=== PATIENT | female | born 1985 | race Caucasian/White ===

== ENCOUNTER 2016-12-23 10:02 | Emergency (ER) | payer OTHER ==
[~2016-12-23] VITALS: Ht 165.1 cm; Wt 118.9 kg
[2016-12-23 10:06] VITALS: TEMP 36.6; Ht 165.1 cm; Wt 118.9 kg
[2016-12-23] MEDS ORDERED: SODIUM CHLORIDE 0.9% 1000ML 1,000 ML IV STA (11:20)
[2016-12-23 11:38] LABS: BASO % 0.3 %; BASO ABS # 0.03 K/uL (0-0.2); COMPLETE YES; EOS % 1.6 %; HEMATOCRIT 44.2 % (37-47); IG% 0.1 %; LYMPH % 26.2 %; LYMPH ABS # 2.57 K/uL (1.2-3.4); MEAN CELL VOLUME 85.7 fL (80-100); MEAN CORPUSCULAR HEMOGLOBIN 30.2 pg (25-34); MEAN CORPUSCULAR HGB CONC 35.3 g/dl (32-36); MONO % 9.7 %; NEUT % 62.1 %; PLATELET COUNT 210 K/uL (130-400); RED BLOOD COUNT 5.16 M/uL (4.2-5.4)
[2016-12-23 11:42] LABS: MANUAL MICROSCOPIC REQUIRED? NO; URINE APPEARANCE CLEAR (CLEAR); URINE BILIRUBIN NEG (NEG); URINE COLOR YELLOW; URINE NITRITE NEG (NEG); URINE SPECIFIC GRAVITY 1.025 (1.000-1.030); UROBILINOGEN NEG (NEG)
[2016-12-23 11:45] LABS: REVIEW REQ? NO
[2016-12-23 11:46] LABS: ZZUR CULT IF INDIC CLEAN CATCH NO
[2016-12-23] MEDS ORDERED: NAPR1TAB9 PO (11:53)
[2016-12-23] MEDS ORDERED: CRAN1CAP15 PO (11:53)
[2016-12-23 11:56] LABS: BUN/CREATININE RATIO 14.7 (10-20); CALCIUM 8.9 mg/dl (8.5-10.1); CREATININE 0.85 mg/dl (0.60-1.20)
[2016-12-23 11:59] LABS: ALB/GLOB RATIO 0.9 (0.9-2)
--- NOTE | 2016-12-23 12:29 | DIAGNOSTIC IMAGING REPORT ---
EXAMINATION: PELVIC ULTRASOUND (transabdominal and endovaginal scanning) CLINICAL HISTORY: Pelvic pain COMPARISON STUDY: FINDINGS: The uterus is surgically absent The right ovary measured 5.4 x 5.3 x 5.8 cm. There is a 4.3 x 3.9 x 4.2 cm right ovarian mass demonstrating a spongiform echotexture. This likely represents a hemorrhagic cyst.. The left ovary measured 2.1 x 1.6 x 2.1 cm.. There is no ultrasonographic evidence of ovarian torsion. It should be noted that ovarian torsion can be present with normal Doppler ultrasonographic findings. There is trace free fluid in the cul-de-sac, likely physiologic IMPRESSION: 1. Surgically absent uterus 2. Complex 4.3 cm right ovarian cyst, likely representing a hemorrhagic cyst. Electronically signed by: Justin Chairez M.D. 12/23/2016 12:28 PM Dictated Date/Time: 12/23/2016 12:26 PM
[2016-12-23] MEDS ORDERED: KETOROLAC TROMETHAMINE 30 MG/ML VIAL IV STA (12:44)
--- NOTE | 2016-12-23 13:51 | EMERGENCY ROOM VISIT NOTE ---
History First contact with patient: 10:58 Chief Complaint: PELVIC PAIN Stated Complaint: PELVIC PAIN, PEEING HERSELF W/ ANY MOVEMENT History of Present Illness The patient is a 31 year old female who presents to the Emergency Room with complaints of pelvic pain. The patient states that she has had chronic pelvic pain for the past few years. She has been seen by [facility] and told that she has weak pelvic muscles. 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 The patient states that over the past few weeks, her pelvic pain has worsened and she has had a few episodes of urinary incontinence. She denies any other urinary symptoms. She states that she has had a whitish vaginal discharge. The patient has had a hysterectomy but does state that she has both ovaries. She denies any fevers/chills, nausea , vomiting or changes in bowel movements. The patient denies any chance of STI. Review of Systems A complete 10-point Review of Systems was discussed with the patient, with pertinent positives and negatives listed in the History of Present Illness. All remaining Review of Systems questions can be considered negative unless otherwise specified. 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 Family History FH: cancer FH: diabetes mellitus FH: gallbladder disease FH: hypertension Social History Smoking Status: Current Every Day Smoker Alcohol Use: none Marital Status: Occupation Status: employed Current/Historical Medications Scheduled Cranberry-Vitamin C-Vitamin E (Cranberry), 1 CAP PO DAILY Ibuprofen (Advil), 400-600 MG PO Q6H Scheduled PRN Hydrocodone/Acetaminophen 5MG/325MG ([place] 5MG/325MG), 1-2 TABLET PO Q4H PRN for Pain Miscellaneous Medications Naproxen (Aleve), 220 MG PO Allergies Coded Allergies: Iodinated Diagnostic Agents (Unverified Allergy, Intermediate, HIVES, 12/23) Trazodone (Unverified Allergy, Intermediate, SWELLING, 12/23/16) Zolpidem (Unverified Allergy, Intermediate, SWELLING, 12/23/16) Physical Exam Vital Signs Date Time Temp Pulse Resp B/P Pulse Ox O2 Delivery O2 Flow Rate FiO2 12/23/16 13:53 85 16 100/63 94 Room Air 12/23/16 12:36 94 12/23/16 12:27 84 117/76 99 Room Air 12/23/16 10:06 36.6 95 18 137/90 96 Room Air Physical Exam VITALS: Vitals are noted on the nurse's note and reviewed by myself. Vital signs stable. GENERAL: This is a 31-year-old female, in no acute distress, nondiaphoretic, well-developed well-nourished. SKIN: Capillary reflex less than 2 seconds. HEENT: Normocephalic. PERRLA. EOMI. Nares patent. Mucous membranes moist. HEART: Regular rate and rhythm without murmurs gallops or rubs. LUNGS: Clear to auscultation bilaterally without wheezes, rales or rhonchi. ABDOMEN: Positive bowel sounds x 4. Soft, mild tenderness across the lower abdomen. No guarding or rebound tenderness. PELVIC: External genitalia unremarkable. There is a small amount of whitish vaginal discharge within the vaginal vault. No cervicitis. No cervical motion tenderness or adnexal tenderness. NEURO: Patient was alert and oriented to person place and time. Medical Decision & Procedures ER Provider Diagnostic Interpretation: EXAMINATION: PELVIC ULTRASOUND (transabdominal and endovaginal scanning) CLINICAL HISTORY: Pelvic pain COMPARISON STUDY: FINDINGS: The uterus is surgically absent The right ovary measured 5.4 x 5.3 x 5.8 cm. There is a 4.3 x 3.9 x 4.2 cm right ovarian mass demonstrating a spongiform echotexture. This likely represents a hemorrhagic cyst.. The left ovary measured 2.1 x 1.6 x 2.1 cm.. There is no ultrasonographic evidence of ovarian torsion. It should be noted that ovarian torsion can be present with normal Doppler ultrasonographic findings. There is trace free fluid in the cul-de-sac, likely physiologic IMPRESSION: 1. Surgically absent uterus 2. Complex 4.3 cm right ovarian cyst, likely representing a hemorrhagic cyst. Laboratory Results 12/23/16 11:25 Red Blood Count 5.16, Mean Corpuscular Volume 85.7, Mean Corpuscular Hemoglobin 30.2, Mean Corpuscular Hemoglobin Concent 35.3, Mean Platelet Volume 9.0, Neutrophils (%) (Auto) 62.1, Lymphocytes (%) (Auto) 26.2, Monocytes (%) (Auto) 9.7, Eosinophils (%) (Auto) 1.6, Basophils (%) (Auto) 0.3, Neutrophils # (Auto) 6.08, Lymphocytes # (Auto) 2.57, Monocytes # (Auto) 0.95, Eosinophils # (Auto) 0.16, Basophils # (Auto) 0.03 12/23/16 11:25 Test 12/23/16 11:25 12/23/16 11:28 12/23/16 13:25 White Blood Count 9.80 K/uL (4.8-10.8) Red Blood Count 5.16 M/uL (4.2-5.4) Hemoglobin 15.6 g/dL (12.0-16.0) Hematocrit 44.2 % (37-47) Mean Corpuscular Volume 85.7 fL (80-100) Mean Corpuscular Hemoglobin 30.2 pg (25-34) Mean Corpuscular Hemoglobin Concent 35.3 g/dl (32-36) Platelet Count 210 K/uL (130-400) Mean Platelet Volume 9.0 fL (7.4-10.4) Neutrophils (%) (Auto) 62.1 % Lymphocytes (%) (Auto) 26.2 % Monocytes (%) (Auto) 9.7 % Eosinophils (%) (Auto) 1.6 % Basophils (%) (Auto) 0.3 % Neutrophils # (Auto) 6.08 K/uL (1.4-6.5) Lymphocytes # (Auto) 2.57 K/uL (1.2-3.4) Monocytes # (Auto) 0.95 K/uL (0.11-0.59) Eosinophils # (Auto) 0.16 K/uL (0-0.5) Basophils # (Auto) 0.03 K/uL (0-0.2) RDW Standard Deviation 40.8 fL (36.4-46.3) RDW Coefficient of Variation 12.9 % (11.5-14.5) Immature Granulocyte % (Auto) 0.1 % Immature Granulocyte # (Auto) 0.01 K/uL (0.00-0.02) Anion Gap 6.0 mmol/L (3-11) Est Creatinine Clear Calc Drug Dose 122.6 ml/min Estimated GFR () 105.1 Estimated GFR (Non- 90.7 BUN/Creatinine Ratio 14.7 (10-20) Calcium Level 8.9 mg/dl (8.5-10.1) Total Bilirubin 0.3 mg/dl (0.2-1) Aspartate Amino Transf (AST/SGOT) 8 U/L (15-37) Alanine Aminotransferase (ALT/SGPT) 21 U/L (12-78) Alkaline Phosphatase 63 U/L (45-117) Total Protein 7.4 gm/dl (6.4-8.2) Albumin 3.5 gm/dl (3.4-5.0) Globulin 3.9 gm/dl (2.5-4.0) Albumin/Globulin Ratio 0.9 (0.9-2) Urine Color YELLOW Urine Appearance CLEAR (CLEAR) Urine pH 6.0 (4.5-7.5) Urine Specific [place] 1.025 (1.000-1.030) Urine Protein NEG (NEG) Urine Glucose (UA) NEG (NEG) Urine Ketones NEG (NEG) Urine Occult Blood NEG (NEG) Urine Nitrite NEG (NEG) Urine Bilirubin NEG (NEG) Urine Urobilinogen NEG (NEG) Urine Leukocyte Esterase NEG (NEG) Date/Time Source Procedure Growth Status 12/23/16 13:24 Vaginal Swab Trichomonas Preparation - Final Complete Medications Administered Medications (Trade) Dose Ordered Sig/Jacqueline Route Start Time Stop Time Status Last Admin Dose Admin Sodium Chloride (Nss 1000ml) 1,000 ml @ 999 mls/hr Q1H1M STAT IV 12/23/16 11:20 12/23/16 12:20 DC 12/23/16 11:30 999 MLS/HR Ketorolac Tromethamine (Toradol Inj) 30 mg NOW STAT IV 12/23/16 12:44 12/23/16 12:45 DC 12/23/16 12:50 30 MG Medical Decision Differential diagnosis includes ovarian cyst, ovarian torsion, pelvic inflammatory disease, vaginal infection, urinary tract infection, among others. The patient was evaluated as above. Labs were drawn and IV access was obtained. Imaging studies were performed and read by radiology as above. The patient was medicated with 1 L normal saline solution and 30 mg Toradol IV. The patient was reassessed multiple times during their stay in the emergency department and remained in stable condition. The patient is a 31-year-old female who presents today complaining of pelvic pain. The patient does report this pain has been chronic, but she has not been seen for several months. Labs revealed no leukocytosis, anemia or concerning electrolyte abnormalities. Urinalysis was not suggestive of infection. Pelvic ultrasound was performed and did show a right ovarian cyst, which may be contributing to the patient's pain. Pelvic exam was unremarkable. Cultures were obtained and are pending. The patient gives a history consistent with stress urinary incontinence. I do feel that she needs to follow up with [employer] and she was given information for a local GAME [employer]. She was given a short course of [place] for her pelvic pain. She was instructed to return here for worsening of her current condition or any new/concerning symptoms. Based on the patient's presentation, lab results, and imaging studies, I feel the patient is stable for outpatient treatment. The patient's case was reviewed with Dr. Cole, ED attending physician, who agreed with my assessment and treatment plan. Discharge instructions were reviewed with the patient. The patient verbalized understanding of my assessment and treatment plan and was discharged home in good condition. [place] Drug Monitoring Program Search Results: patient reviewed within database, no issues identified Impression Primary Impression: Right ovarian cyst Additional Impression: Stress incontinence in female Departure Information Dispostion Home / Self-Care Condition GOOD Prescriptions Hydrocodone/Acetaminophen 5MG/325MG ([place] 5MG/325MG) Tab 1-2 TABLET PO Q4H Y for Pain, #15 TAB For Initial Treatment Prov: Joanne Rico ., NANCY 12/23/16 Referrals No Doctor, Assigned (PCP) Gonzalez Wagoner M.D. Patient Instructions My [facility] Additional Instructions You were treated today for pelvic pain and stress incontinence. Your ultrasound did show a right ovarian cyst. Cultures are typically completely within 48 hours. If you do not hear from us, you may call to check on your culture results. You have been prescribed [place] to be used for pain control. Take 1-2 tablets every 4-6 hours as needed for pain. This is a narcotic medication. You cannot drive or consume alcohol while on this medicine. This medicine should only be used for pain that cannot be controlled with [id number] pain medicines. For pain control, you can use the following [id number] medicines (if >12 yo): - Regular strength (325mg/tab) Tylenol (acetaminophen) 2 tabs every 4-6 hours as needed. Do not exceed 12 tablets in a 24 hour period. Avoid taking more than 4 grams (4000 mg) of Tylenol per day. This includes any other sources of acetaminophen you may take on a regular basis. - Regular strength (200 mg/tab) Advil (ibuprofen) 1-2 tabs every 4-6 hours as needed. Do not exceed a dose of 3200 mg per day. Follow-up with G[employer]. Call them today to schedule a follow-up appointment. Return to the emergency department with worsening pain, fevers, other urinary symptoms or any other new/concerning symptoms. Problem Qualifiers
[2016-12-23] MEDS ORDERED: HYDR-5688 PO (13:52)
[2016-12-23 13:53] VITALS: BP 100/63; PULSE 85; O2SAT 94
[2016-12-27 08:39] LABS: CHLAMYDIA TRACH RNA*** NOT DETECTED (NOT DETECTED); GC (NEIS GONORRHOEAE)RNA** NOT DETECTED (NOT DETECTED)
[2017-06-29] MEDS ORDERED: IBUP-1050 PO (11:53)
== END 2016-12-23 14:03 | disposition home or self-care (01) ==
LOC: C.EDB 10:04 → C.EDC 14:03
DX: N83.201 Unspecified ovarian cyst, right side (principal); N39.3 Stress incontinence (female) (male); F17.200 Nicotine dependence, unspecified, uncomplicated; Z90.710 Acquired absence of both cervix and uterus; Z98.51 Tubal ligation status; Z90.49 Acquired absence of other specified parts of digestive tract; Z98.2 Presence of cerebrospinal fluid drainage device; Z88.8 Allergy status to other drugs, medicaments and biological substances; Z91.09 Other allergy status, other than to drugs and biological substances; Z80.9 Family history of malignant neoplasm, unspecified; Z83.3 Family history of diabetes mellitus; Z83.79 Family history of other diseases of the digestive system; Z82.49 Family history of ischemic heart disease and other diseases of the circulatory system

== ENCOUNTER 2017-01-13 13:20 | Emergency (ER) | payer OTHER ==
[~2017-01-13] VITALS: Ht 165.1 cm; Wt 117.6 kg
[~2017-01-13 13:20] MED LIST: CRAN1CAP15 PO; HYDR-5688 PO; NAPR1TAB9 PO
[2017-01-13 13:26] VITALS: TEMP 36.7; Ht 165.1 cm; Wt 117.6 kg
[2017-01-13] MEDS ORDERED: KETOROLAC TROMETHAMINE 30 MG/ML VIAL IV STA (13:39)
[2017-01-13] MEDS ORDERED: PROCHLORPERAZINE 5 MG/ML 2 ML VIAL IV STA (13:40)
[2017-01-13] MEDS ORDERED: DEXAMETHASONE SOD INJ 10 MG/ML VIAL IV ONE (13:45)
[2017-01-13 14:14] LABS: HEMATOCRIT 44.2 % (37-47); MEAN CELL VOLUME 83.6 fL (80-100); MEAN CORPUSCULAR HEMOGLOBIN 29.3 pg (25-34); MEAN CORPUSCULAR HGB CONC 35.1 g/dl (32-36); MEAN PLATELET VOLUME 8.9 fL (7.4-10.4); PLATELET COUNT 239 K/uL (130-400); RED BLOOD COUNT 5.29 M/uL (4.2-5.4); WHITE BLOOD COUNT 8.79 K/uL (4.8-10.8)
[2017-01-13 14:39] LABS: CREATININE 0.84 mg/dl (0.60-1.20); POTASSIUM 3.8 mmol/L (3.5-5.1)
--- NOTE | 2017-01-13 14:42 | DIAGNOSTIC IMAGING REPORT ---
HEAD CT NONCONTRAST CT DOSE: 729.78 mGycm HISTORY: svp shunt, headache. TECHNIQUE: Multiaxial CT images of the head were performed without the use of intravenous contrast. Automated exposure control was utilized for this study. Comparison: None. Findings: The paranasal sinuses and mastoid air cells are clear. There is a right frontal approach ventriculostomy catheter. The tubing appears intact. The tip terminates at the foramen of [place]. No ventriculomegaly. The third and lateral ventricles are decompressed. The third ventricle measures 2 mm in diameter. There is no mass, hematoma, midline shift, acute infarct. Impression: 1. The ventricular ostomy catheter appears intact. The third and lateral ventricles are decompressed. No hydrocephalus. 2. No acute infarct. 3. No intracranial hemorrhage. Electronically signed by: Junior Edward M.D. 01/13/2017 2:40 PM Dictated Date/Time: 01/13/2017 2:36 PM
--- NOTE | 2017-01-13 14:48 | EMERGENCY ROOM VISIT NOTE ---
History Report prepared by Toni: Shanell Valenzuela Under the Supervision of: Dr. Joey Philippe D.O. First contact with patient: 13:35 Chief Complaint: HEAD PAIN Stated Complaint: EXTREME PRESSURE IN HEAD History of Present Illness The patient is a 31 year old female who presents to the Emergency Room with complaints of persistent head pain starting 3 days ago. She describes the pain as a pressure and says that her discomfort is severe. The patient has a shunt in her head to drain extra fluid that her spine produces. She has been taking ibuprofen and Tylenol to try to relieve the pain. She has been drinking a lot of coffee to try and urinate the excess fluid. She has usually been able to experience relief this way. She reports vision changes in her right eye, feeling like her right eye will pop out, numbness in feet and legs, and nausea. She denies any urinary symptoms. She states that these problems sometimes occur when she has low potassium. She has previously had similar symptoms and had to have the fluid in her head drained in the hospital. Source of History: patient Onset: 3 days ago Position: head Symptom Intensity: severe Quality: pressure Timing: other (persistent) Associated Symptoms: + nausea, + numbness (in legs), No urinary symptoms Note: Pt reports vision changes in right eye. Review of Systems See HPI for pertinent positives & negatives. A total of 10 systems reviewed and were otherwise negative. Past Medical & Surgical Medical Problems: (1) Fibromyalgia Surgical Problems: (1) History of cholecystectomy (2) History of dilation and curettage (3) History of hysterectomy (4) History of tubal ligation (5) S/P SAND OPERATOR shunt Family History FH: cancer FH: diabetes mellitus FH: gallbladder disease FH: hypertension Social History Smoking Status: Current Every Day Smoker Alcohol Use: none Marital Status: Occupation Status: employed Current/Historical Medications Scheduled Cranberry-Vitamin C-Vitamin E (Cranberry), 1 CAP PO DAILY Ibuprofen (Advil), 400-600 MG PO Q6H Scheduled PRN Hydrocodone/Acetaminophen 5MG/325MG ([place] 5MG/325MG), 1-2 TABLET PO Q4H PRN for Pain Miscellaneous Medications Naproxen (Aleve), 220 MG PO Allergies Coded Allergies: Iodinated Diagnostic Agents (Unverified Allergy, Intermediate, HIVES, 12/23) Trazodone (Unverified Allergy, Intermediate, SWELLING, 12/23/16) Zolpidem (Unverified Allergy, Intermediate, SWELLING, 12/23/16) Physical Exam Vital Signs Date Time Temp Pulse Resp B/P Pulse Ox O2 Delivery O2 Flow Rate FiO2 01/13/17 14:37 80 20 97/66 98 Room Air 01/13/17 14:01 95 01/13/17 13:26 36.7 86 16 139/82 98 Room Air Physical Exam CONSTITUTIONAL/VITAL SIGNS: Reviewed / noted above. GENERAL: Non-toxic in appearance. Appears slightly drowsy. INTEGUMENTARY: Warm, dry, and [place]. HEAD: Normocephalic. EYES: without scleral icterus or trauma. ENT/OROPHARYNX: clear and moist. LYMPHADENOPATHY/NECK: Is supple without lymphadenopathy or meningismus. RESPIRATORY: Lungs clear and equal. CARDIOVASCULAR: Regular rate and rhythm. GI/ABDOMEN: Soft and nontender. No organomegaly or pulsatile mass. No rebound or guarding. Normal bowel sounds. EXTREMITIES: Warm and well perfused. BACK: No CVA tenderness. NEUROLOGICAL: Intact without focal deficits. PSYCHIATRIC: normal affect. MUSCULOSKELETAL: Normally developed with good muscle tone. Medical Decision & Procedures ER Provider Diagnostic Interpretation: Radiology results as stated below per my review and radiologist interpretation: HEAD CT NONCONTRAST CT DOSE: 729.78 mGycm HISTORY: vp research shunt, headache. TECHNIQUE: Multiaxial CT images of the head were performed without the use of intravenous contrast. Automated exposure control was utilized for this study. Comparison: None. Findings: The paranasal sinuses and mastoid air cells are clear. There is a right frontal approach ventriculostomy catheter. The tubing appears intact. The tip terminates at the foramen of [place]. No ventriculomegaly. The third and lateral ventricles are decompressed. The third ventricle measures 2 mm in diameter. There is no mass, hematoma, midline shift, acute infarct. Impression: 1. The ventricular ostomy catheter appears intact. The third and lateral ventricles are decompressed. No hydrocephalus. 2. No acute infarct. 3. No intracranial hemorrhage. Electronically signed by: Junior Edward M.D. 01/13/2017 2:40 PM Dictated Date/Time: 01/13/2017 2:36 PM Laboratory Results 01/13/17 13:55 01/13/17 13:55 Test 01/13/17 13:52 01/13/17 13:55 Red Blood Count 5.29 M/uL (4.2-5.4) Mean Corpuscular Volume 83.6 fL (80-100) Mean Corpuscular Hemoglobin 29.3 pg (25-34) Mean Corpuscular Hemoglobin Concent 35.1 g/dl (32-36) RDW Standard Deviation 39.1 fL (36.4-46.3) RDW Coefficient of Variation 12.9 % (11.5-14.5) Mean Platelet Volume 8.9 fL (7.4-10.4) Anion Gap 8.0 mmol/L (3-11) Est Creatinine Clear Calc Drug Dose 123.3 ml/min Estimated GFR () 106.6 Estimated GFR (Non- 92.0 BUN/Creatinine Ratio 12.0 (10-20) Laboratory results as stated above per my review. Medications Administered Medications (Trade) Dose Ordered Sig/Jacqueline Route Start Time Stop Time Status Last Admin Dose Admin Ketorolac Tromethamine (Toradol Inj) 30 mg NOW STAT IV 01/13/17 13:39 01/13/17 13:41 DC 01/13/17 14:15 30 MG Prochlorperazine Edisylate (Compazine Inj) 10 mg NOW STAT IV 01/13/17 13:40 01/13/17 13:42 DC 01/13/17 14:15 10 MG Dexamethasone Sodium Phosphate (Decadron Inj) 10 mg NOW ONCE IV 01/13/17 13:45 01/13/17 13:46 DC 01/13/17 14:16 10 MG ED Course 1336: Previous medical records were reviewed. The patient was evaluated in room C8. A complete history and physical examination was performed. 1339: Toradol Inj 30 mg. 1340: Compazine Inj 10 mg IV. 1345: Decadron Inj 10 mg IV. 1448: On reevaluation, the patient is resting comfortably. I discussed the results and findings with the patient. She verbalized agreement of the treatment plan. She was discharged home. Medical Decision Differential includes: Acute intracranial bleed, trauma, meningitis, encephalitis, increased intracranial pressure, mass or mass effect, facial or dental infection, temporal arteritis, CVA, TIA, acute hypertensive emergency, sinusitis, carbon monoxide exposure. This is a 31-year-old female who presents to the ED with a chief complaint of a headache. The patient reports a history of pseudotumor cerebri and has had a SAND OPERATOR shunt in place since 2009. Her neurologist is from [place]. The patient a headache for the last several days that she has not been able to get relief. She denies any nausea or vomiting. No fevers or recent illness. No trauma. Her vital signs are normal. Exam was unremarkable. She does appear slightly drowsy. CBC is normal. Chemistry panel was unremarkable. Kidney function is normal. A CT scan of the brain did not show any acute process. The ventricles appear to be decompressed and there is a shunt in place and appears to be functioning normally. The patient was treated with Toradol IV as well as IV Compazine. She was also given IV Decadron. She states that her employer dropped her off. She was told the results. She is felt to be stable for discharge. Impression Primary Impression: Headache Additional Impression: SAND OPERATOR (ventriculoperitoneal) shunt status Scribe Attestation The scribe's documentation has been prepared under my direction and personally reviewed by me in its entirety. I confirm that the note above accurately reflects all work, treatment, procedures, and medical decision making performed by me. Departure Information Dispostion Home / Self-Care Referrals No Doctor, Assigned (PCP) Patient Instructions My [facility] Additional Instructions Follow-up with your doctor/ neurologist for further care and evaluation in 1-4 days if symptoms persist. Return to the emergency department for worsening or new symptoms or any concerns. You have been examined and treated today on an emergency basis only. This is not a substitute for, or an effort to provide, complete comprehensive medical care. It is impossible to recognize and treat all injuries or illnesses in a single emergency department visit. It is therefore important that you follow up closely with your doctor. Call as soon as possible for an appointment. Problem Qualifiers
[2017-01-13 14:49] LABS: BENZODIAZEPINE, URINE NEG (NEG); COCAINE,URINE NEG (NEG); PHENCYCLIDINE, URINE NEG (NEG)
[2017-01-13 14:54] LABS: CALCIUM 8.9 mg/dl (8.5-10.1)
[2017-01-13 14:57] LABS: URINE APPEARANCE CLEAR (CLEAR); URINE BILIRUBIN NEG (NEG); URINE COLOR YELLOW; URINE EPITHELIAL CELL AUTO >30 /lpf (0-5); URINE NITRITE NEG (NEG); URINE PH 8.5 (4.5-7.5); URINE SPECIFIC GRAVITY 1.009 (1.000-1.030); UROBILINOGEN NEG (NEG); ZZUR CULT IF INDIC CLEAN CATCH NO
[2017-01-13 14:59] LABS: MANUAL MICROSCOPIC REQUIRED? NO; REVIEW REQ? NO
[2017-01-13 15:26] VITALS: BP 94/58; PULSE 75; O2SAT 97
[2017-06-29] MEDS ORDERED: IBUP-1050 PO (11:53)
== END 2017-01-13 15:27 | disposition home or self-care (01) ==
LOC: C.EDB 13:22 → C.EDC 15:27
DX: R51 Headache (principal); Z98.2 Presence of cerebrospinal fluid drainage device; R20.0 Anesthesia of skin; M79.7 Fibromyalgia; Z82.49 Family history of ischemic heart disease and other diseases of the circulatory system; Z83.3 Family history of diabetes mellitus; Z83.79 Family history of other diseases of the digestive system; F17.200 Nicotine dependence, unspecified, uncomplicated

== ENCOUNTER 2017-06-29 19:02 | Emergency (ER) | payer OTHER ==
[~2017-06-29] VITALS: Ht 165.1 cm; Wt 110.7 kg
[~2017-06-29 19:02] MED LIST changes: -CRAN1CAP15 PO; -HYDR-5688 PO; +IBUP-1050 PO; -NAPR1TAB9 PO
[2017-06-29 19:08] VITALS: TEMP 36.9; Ht 165.1 cm; Wt 110.7 kg
[2017-06-29] MEDS ORDERED: NUTRTAB53 PO (19:16)
[2017-06-29] MEDS ORDERED: DIAZEPAM INJ 5 MG/ML 2 ML CARP IM STA (20:00)
[2017-06-29] MEDS ORDERED: KETOROLAC TROMETHAMINE 60 MG/2 ML VIAL IM STA (20:00)
[2017-06-29] MEDS ORDERED: FLEXERIL HOME PACK 10 MG VIAL PO STA (20:28)
--- NOTE | 2017-06-29 20:28 | EMERGENCY ROOM VISIT NOTE ---
ED Visit Note First contact with patient: 19:49 CHIEF COMPLAINT: back pain HISTORY OF PRESENT ILLNESS: This 31-year-old female patient presents to the emergency department ambulatory, complaining of pain in the low back which began walks minimally one and a half weeks ago. The patient states she does have a history of chronic back pain, and also has a history of fibromyalgia. She states she works 21 days in a row, then has one day off at a time. The patient states she works at a [employer] 9 AM to 8 or 9 PM 7 days per week. The patient states her boss thinks that she is getting dehydrated and is overworking herself. The patient states that one week, she often works 88 hours. The patient describes the back pain as constant dull aching which then becomes sharp, followed by burning. The pain was gradual in onset, is now constant and worse with movement. The patient rates the pain a 9/10. The patient has taken ibuprofen, naproxen, ice, heat, and has done stretches at home without having relief of the pain. She states the worst of the pain is in the middle right side. She states the sharpness does feel like spasms. The patient denies any loss of control of their bowel or bladder functions. There has been no leg numbness or weakness, and no change in sensation. The patient denies injury. She states she feels that she most likely just over-worked herself and spends too much time on her feet. No nausea or vomiting or abdominal pain. No chest pain or shortness of breath. The patient has not had prior back injuries. No dysuria or increased urinary frequency. REVIEW OF SYSTEMS: A 10 system review of systems was performed with positives and pertinent negatives listed in the history of present illness. All other systems were reviewed and are negative. ALLERGIES: Trazodone, zolpidem, IV contrast MEDICATIONS: Multivitamin PMH: Fibromyalgia, pseudotumor cerebri, [employer] shunt SOCIAL HISTORY: The patient lives locally with family. She admits to smoking one pack of cigarettes per day. The patient denies drug or alcohol use. PHYSICAL EXAM: VITALS: Vitals are noted on the nurse's note and reviewed by myself. Vital signs stable. GENERAL: Is a 31-year-old obese white female, in no acute distress, nondiaphoretic, well-developed well-nourished. SKIN: The skin was without rashes, erythema, edema, or bruising. Capillary refill less than 2 seconds. NECK: Supple without nuchal rigidity. No cervical spine tenderness. No paraspinous muscle tenderness. HEART: Regular rate and rhythm without murmurs gallops or rubs. LUNGS: Clear to auscultation bilaterally without wheezes, rales or rhonchi. ABDOMEN: Positive bowel sounds x 4. Normal tympanic percussion. Soft, nontender, without masses or organomegaly. Cohen sign negative. MUSCULOSKELETAL: No muscle atrophy, erythema, or edema noted of the back. There is no tenderness over the lumbar spinous processes. There is mild tenderness over the paraspinous muscles bilaterally. There is mild tenderness over the thoracic spine, and moderate tenderness over the paraspinous muscles. There are muscle spasms present. The patient is slow to move around with maximum tenderness with rising to a sitting position. Negative straight leg raise test bilaterally. NEURO: Patient was alert and oriented to person place and time. Normal sensation to light and sharp touch. Deep tendon reflexes 2+ in the lower extremities. Dorsalis pedis pulse 2+ bilaterally. Strength 5/5 and equal in the bilateral lower extremities. EMERGENCY DEPARTMENT COURSE: The patient was seen and evaluated as above. Based on her history of no recent injury, I do not feel that x-rays at this time will give much information. I discussed with the patient and she is in agreement. I discussed with the patient that I do note muscle spasms on examination and I feel that this is the cause of her symptoms. I recommended anti-inflammatories and muscle relaxers. The patient is in agreement with this plan. She was given 60 mg Toradol IM and 10 mg Valium IM. She did report mild improvement in her symptoms. Discharge instructions were reviewed and the patient was discharged home in good condition. DIFFERENTIAL DIAGNOSIS: Lumbar strain, thoracic strain, cauda equina syndrome, muscle spasms, fracture, contusion, malignancy, and others. DIAGNOSIS: thoracic strain DISCHARGE INSTRUCTIONS AND TREATMENT: You have been treated in the Emergency Department for Back Pain. You have received pain medicine in the emergency department which impairs your ability to operate a vehicle. It is illegal for you to drive after receiving these medicines. You've been prescribed meloxicam 7.5 mg twice a day. Please take this medication as prescribed. Please do not take any other NSAIDs including ibuprofen, Advil, Motrin, naproxen, Aleve while taking this medication, as it can cause stomach upset or ulcers. You have been prescribed Flexeril (cyclobenzaprine) 1-2 tabs orally, three times per day. Do NOT exceed 30 mg (6 tabs) per day. Take your first dose at bedtime as it can make you drowsy. Always take all medications as prescribed. For pain control, you can use the following ikgr-esu-qzlfula medicines (if >12 yo): Ibuprofen(Motrin, Advil) may be used for fever or pain. Use 600mg every six hours as needed. Take with food. Avoid using more than 2400mg in a 24 hour period. Do not use 2400mg per day for more than three consecutive days without physician direction. Prolonged inappropriate use can lead to stomach upset or ulcers. Do not take this medication with meloxicam or naproxen. (AND/OR) Acetaminophen(Tylenol) may be used for fever or pain. Use 1000mg every six hours as needed. Avoid using more than 3000mg in a 24 hour period. If this is an acute injury, ice can be applied to the area of pain for the first 3 days to help decrease pain and inflammation. After the first 3 days, a heating pad can be used over the area for continued soothing relief. You should schedule a follow-up appointment in 2-3 days with your Primary Care Provider for further evaluation and treatment of your back pain. I do feel that physical therapy will be beneficial. Please contact a PCP on your insurance list for referral for PT. Return to the Emergency Department if your current symptoms worsen despite treatment course outlined above, or if you develop any of the following symptoms : intractable pain despite aforementioned treatment course, loss of control of your bowel or bladder, numbness or tingling in your groin, or development of a fever. Current/Historical Medications Scheduled Ibuprofen (Advil), 400-600 MG PO Q6H Meloxicam (Mobic), 1 TAB PO BID Nutritional Supplements (Immune Enhance), 1 TAB PO DAILY Scheduled PRN Cyclobenzaprine Hcl (Flexeril), 5 MG PO TID PRN for Muscle Spasms Allergies Coded Allergies: Iodinated Diagnostic Agents (Unverified Allergy, Intermediate, HIVES, 01/13) Trazodone (Unverified Allergy, Intermediate, SWELLING, 01/13/17) Zolpidem (Unverified Allergy, Intermediate, SWELLING, 01/13/17) Vital Signs Date Time Temp Pulse Resp B/P (MAP) Pulse Ox O2 Delivery O2 Flow Rate FiO2 06/29/17 19:08 36.9 91 18 130/92 97 Room Air Medications Administered Medications (Trade) Dose Ordered Sig/Jacqueline Route Start Time Stop Time Status Last Admin Dose Admin Ketorolac Tromethamine (Toradol Inj) 60 mg NOW STAT IM 06/29/17 20:00 06/29/17 20:01 DC 06/29/17 20:19 60 MG Diazepam (Valium Inj) 10 mg NOW STAT IM 06/29/17 20:00 06/29/17 20:01 DC 06/29/17 20:20 10 MG Departure Information Impression Primary Impression: Strain of thoracic region Dispostion Home / Self-Care Condition GOOD Prescriptions Cyclobenzaprine Hcl (FLEXERIL) 5 Mg Tab 5 MG PO TID Y for Muscle Spasms, #15 TAB PRN Prov: Roshni Pena PA-C 06/29/17 Meloxicam (MOBIC) 7.5 Mg Tab 1 TAB PO BID for 30 Days, #60 TAB Prov: Roshni Pena PA-C 06/29/17 Referrals No Doctor, Assigned (PCP) Patient Instructions ED Neck Back Pain [facility] Additional Instructions You have been treated in the Emergency Department for Back Pain. You have received pain medicine in the emergency department which impairs your ability to operate a vehicle. It is illegal for you to drive after receiving these medicines. You've been prescribed meloxicam 7.5 mg twice a day. Please take this medication as prescribed. Please do not take any other NSAIDs including ibuprofen, Advil, Motrin, naproxen, Aleve while taking this medication, as it can cause stomach upset or ulcers. You have been prescribed Flexeril (cyclobenzaprine) 1-2 tabs orally, three times per day. Do NOT exceed 30 mg (6 tabs) per day. Take your first dose at bedtime as it can make you drowsy. Always take all medications as prescribed. For pain control, you can use the following jtvo-jms-hheurtx medicines (if >12 yo): Ibuprofen(Motrin, Advil) may be used for fever or pain. Use 600mg every six hours as needed. Take with food. Avoid using more than 2400mg in a 24 hour period. Do not use 2400mg per day for more than three consecutive days without physician direction. Prolonged inappropriate use can lead to stomach upset or ulcers. Do not take this medication with meloxicam or naproxen. (AND/OR) Acetaminophen(Tylenol) may be used for fever or pain. Use 1000mg every six hours as needed. Avoid using more than 3000mg in a 24 hour period. If this is an acute injury, ice can be applied to the area of pain for the first 3 days to help decrease pain and inflammation. After the first 3 days, a heating pad can be used over the area for continued soothing relief. You should schedule a follow-up appointment in 2-3 days with your Primary Care Provider for further evaluation and treatment of your back pain. I do feel that physical therapy will be beneficial. Please contact a PCP on your insurance list for referral for PT. Return to the Emergency Department if your current symptoms worsen despite treatment course outlined above, or if you develop any of the following symptoms : intractable pain despite aforementioned treatment course, loss of control of your bowel or bladder, numbness or tingling in your groin, or development of a fever. Problem Qualifiers Primary Impression: Strain of thoracic region Encounter type: initial encounter Qualified Codes: S29.019A - Strain of muscle and tendon of unspecified wall of thorax, initial encounter
[2017-06-29] MEDS ORDERED: MELO7.5T6 PO (20:37)
[2017-06-29] MEDS ORDERED: CYCL5TAB PO (20:37)
[2017-06-29 20:58] VITALS: BP 129/91; PULSE 81; O2SAT 97
== END 2017-06-29 20:55 | disposition home or self-care (01) ==
LOC: C.EDB 19:03 → C.EDD 20:55
DX: S39.012A Strain of muscle, fascia and tendon of lower back, initial encounter (principal); X50.1XXA Overexertion from prolonged static or awkward postures, initial encounter; Y92.89 Other specified places as the place of occurrence of the external cause; M79.7 Fibromyalgia; G93.2 Benign intracranial hypertension; Z98.2 Presence of cerebrospinal fluid drainage device; F17.210 Nicotine dependence, cigarettes, uncomplicated